=== PATIENT | male | born 1980 | race Caucasian/White ===

== ENCOUNTER → 2017-05-10 | Outpatient (CLI) | payer BC ==
[~2017-05-10] MED LIST: NO HOME MEDICATIONS
== END ==
LOC: COL.VAS 05-08 12:30
DX: I10 Essential (primary) hypertension (principal); R00.0 Tachycardia, unspecified

== ENCOUNTER 2024-09-28 08:31 | Emergency (ER) | payer OTHER ==
[~2024-09-28] VITALS: Ht 175.3 cm; Wt 136.4 kg
[2024-09-28 08:42] VITALS: TEMP 98.6
[2024-09-28 10:46] VITALS: BP 147/92; PULSE 94
== END 2024-09-28 10:46 | disposition home or self-care (01) ==
LOC: COL.ER 08:31
DX: S01.01XA Laceration without foreign body of scalp, initial encounter (principal); W22.8XXA Striking against or struck by other objects, initial encounter